=== PATIENT | male | born 1975 | race Caucasian/White ===

== ENCOUNTER 2022-01-14 08:00 | Outpatient (CLI) | payer OTHER ==
--- NOTE | 2022-01-14 17:02 | XRAY Report ---
PROCEDURE: Knee Standing AP View Only INDICATIONS: BILATERAL KNEE PX TECHNIQUE: Single standing views of the bilateral knees. COMPARISON: None FINDINGS: Bones: No acute fractures or dislocations. No suspicious bony lesions. There is mild bilateral femo rotibial compartment narrowing. Soft tissues: No knee joint effusions. No suspicious soft tissue ca lcification. IMPRESSION: Mild bilateral femorotibial compartment narrowing. Reviewed by: Sheron Finley MD on 01/14/2022 5:01 PM PDT Approved by: Sheron Finley MD on 01/14/2022 5:01 PM PDT Station ID: [id number]
== END 2022-01-14 23:59 | disposition home or self-care (01) ==
LOC: DI.N 08:00
PROVIDERS: ATTEND Registered Nurse
DX: M25.862 Other specified joint disorders, left knee (principal); M25.861 Other specified joint disorders, right knee; M10.9 Gout, unspecified
CPT/HCPCS: 36415; 84550

== ENCOUNTER 2022-04-29 11:21 | Outpatient (CLI) | payer OTHER ==
--- NOTE | 2022-04-29 18:39 | XRAY Report ---
PROCEDURE: Cervical Spine 2 View INDICATIONS: CERVICAL PAIN TECHNIQUE: 3 view(s) of the cervical spine were acquired. COMPARISON: None. FINDINGS: Bones: No fractures or dislocations to the T2 level. The lateral masses of C1 appear intact on the odontoid view. No suspicious bony lesions. No acute compression fracture. Moderate multilevel cervi alex spondylosis most pronounced from C3-4 through C6-7. Soft tissues: No prevertebral soft tissue sw elling. IMPRESSION: Cervical spine without acute fracture or malalignment. Moderate multilevel cervical spon dylosis. Reviewed by: Brent Qureshi MD on 04/29/2022 6:37 PM PST Approved by: Brent Qureshi MD on 04/29/2022 6:37 PM PST Station ID: [id number]
== END 2022-04-29 11:22 | disposition home or self-care (01) ==
LOC: DI 11:21
PROVIDERS: ATTEND Physician Assistant
DX: M47.812 Spondylosis without myelopathy or radiculopathy, cervical region (principal)

== ENCOUNTER 2022-12-17 07:49 | Outpatient (CLI) | payer OTHER ==
[2022-12-17 12:09] LABS: BASOPHILS # (AUTO) 0.1 10^3/uL (0.0-0.1); BASOPHILS % (AUTO) 1.1 %; EOSINOPHILS # (AUTO) 0.6 10^3/uL (0.0-0.7); EOSINOPHILS % (AUTO) 10.7 %; HCT - HEMATOCRIT 48.7 % (42.0-52.0); LYMPHOCYTES % (AUTO) 37.6 %; MEAN CORPUSCULAR HEMOGLOBIN 30.2 pg (27.0-31.0); MEAN CORPUSCULAR HGB CONC 32.9 g/dL (32.0-36.0); MEAN CORPUSCULAR VOLUME 92.1 fL (80.0-94.0); MEAN PLATELET VOLUME 9.5 fL (7.4-11.4); MONOCYTES # (AUTO) 0.4 10^3/uL (0.0-1.0); MONOCYTES % (AUTO) 6.5 %; NEUTROPHILS # (AUTO) 2.4 10^3/uL (1.5-6.6); NEUTROPHILS % (AUTO) 43.9 %; PLT - PLATELET COUNT 243 10^3/uL (130-450); RED BLOOD COUNT 5.29 10^6/uL (4.70-6.10); RED CELL DISTRIBUTION WIDTH 12.7 % (12.0-15.0); WHITE BLOOD COUNT 5.4 x10^3/uL (4.8-10.8)
[2022-12-17 12:26] LABS: ALBUMIN 4.3 g/dL (3.2-5.5); CHOL/HDL RATIO 3.3 (<5.0); CHOLESTEROL 211 mg/dL; HDL CHOLESTEROL 64 mg/dL; LDL CHOLESTEROL,CALCULATED 127 mg/dL; TRIGLYCERIDES 99 mg/dL (48-352); URIC ACID 6.2 mg/dL (4.4-7.6); VLDL CHOLESTEROL 20 mg/dL
[2022-12-17 12:29] LABS: ALBUMIN/GLOBULIN RATIO 1.7 (1.0-2.2); ALKALINE PHOSPHATASE 73 IU/L (42-121); ALT ALANINE AMINOTRANSFERASE 22 IU/L (10-60); AST ASPARTATE AMINOTRANSFERASE 18 IU/L (10-42); BILIRUBIN,TOTAL 0.6 mg/dL (0.2-1.0); BUN - BLOOD UREA NITROGEN 16 mg/dL (6-20); CALCIUM 9.6 mg/dL (8.5-10.3); CARBON DIOXIDE - CO2 34 mmol/L (21-32); CHLORIDE 108 mmol/L (101-111); GFR - MDRD 79 (>89); GLUCOSE 95 mg/dL (74-104); POTASSIUM 4.3 mmol/L (3.5-4.5); SODIUM 141 mmol/L (135-145); TOTAL PROTEIN 6.8 g/dL (6.4-8.9)
[2022-12-17 12:32] LABS: BILIRUBIN,URINE NEGATIVE (NEGATIVE); GLUCOSE, URINE (UA) NEGATIVE (NEGATIVE); KETONES,URINE (UA) NEGATIVE (NEGATIVE); LEUKOCYTE ESTERASE, URINE NEGATIVE (NEGATIVE); NITRITE,URINE NEGATIVE (NEGATIVE); OCCULT BLOOD,URINE NEGATIVE (NEGATIVE); PROTEIN,URINE NEGATIVE (NEGATIVE); UROBILINOGEN,URINE 0.2 (NORMAL) E.U./dL (NORMAL)
[2022-12-17 12:36] LABS: CLARITY,URINE CLEAR (CLEAR)
== END 2022-12-17 07:50 | disposition home or self-care (01) ==
LOC: LAB.N 07:49
PROVIDERS: ATTEND Nurse Practitioner
DX: M10.9 Gout, unspecified (principal); Z51.81 Encounter for therapeutic drug level monitoring; Z13.220 Encounter for screening for lipoid disorders; Z12.5 Encounter for screening for malignant neoplasm of prostate
CPT/HCPCS: 36415; 80053; 80061; 81003; 83721; 84153; 84550; 85025

== ENCOUNTER 2023-08-26 14:30 | Outpatient (CLI) | payer OTHER | END 2023-08-26 14:45 | disposition home or self-care (01) | LOC: LAB.N 14:30 | PROVIDERS: ATTEND Physician Assistant Medical | DX: Z20.818 Contact with and (suspected) exposure to other bacterial communicable diseases (principal) | CPT/HCPCS: 87070 ==